=== PATIENT | female | born 1930 | race Caucasian/White ===

== ENCOUNTER → 2016-06-24 | Outpatient (CLI) | payer MEDICARE ==
[2016-06-24 12:02] LABS: ABSOLUTE EOSINOPHILS # (AUTO) 0.2 10^3/uL (0.0-0.6); ABSOLUTE LYMPHOCYTES (AUTO) 0.6 10^3/uL (0.5-4.7); ABSOLUTE MONOCYTES (AUTO) 0.3 10^3/uL (0.1-1.4); ABSOLUTE NEUT (AUTO) 2.7 10^3/uL (1.7-8.2); BASOPHILS % (AUTO) 0.8 % (0-2); EOSINOPHILS % (AUTO) 5.4 % (0-6); HEMATOCRIT 38.8 % (36.0-47.0); HEMOGLOBIN 12.8 g/dL (12.0-15.5); HGB HCT DIFFERENCE -0.4; MEAN CORPUSCULAR HEMOGLOBIN 28.5 pg (27.0-33.4); MEAN CORPUSCULAR VOLUME 86 fl (80-97); MONOCYTES % (AUTO) 7.4 % (3-13); RED BLOOD COUNT 4.49 10^6/uL (3.72-5.28); RED CELL DISTRIBUTION WIDTH 14.7 % (11.5-14.0); SEGMENTED NEUTROPHILS % (AUTO) 70.4 % (42-78); WHITE BLOOD COUNT 3.9 10^3/uL (4.0-10.5)
[2016-06-24 12:05] LABS: PROTHROMBIN TIME 13.1 SEC (11.4-15.4)
[2016-06-24 12:06] LABS: PARTIAL THROMBOPLASTIN TIME 28.6 SEC (23.5-35.8)
[2016-06-24 12:19] LABS: APPEARANCE,URINE CLOUDY; BILIRUBIN,URINE NEGATIVE (NEGATIVE); GLUCOSE, URINE NEGATIVE (NEGATIVE); KETONES,URINE NEGATIVE (NEGATIVE); LEUKOCYTE ESTERASE,URINE MODERATE (NEGATIVE); NITRITE,URINE NEGATIVE (NEGATIVE); PROTEIN,URINE NEGATIVE (NEGATIVE); UROBILINOGEN,URINE NEGATIVE mg/dL (<2.0)
[2016-06-24 12:26] LABS: ANION GAP 11 (5-19); BLOOD UREA NITROGEN 21 mg/dL (7-20); C-REACTIVE PROTEIN 11.5 mg/L (<10.0); CALCIUM 9.9 mg/dL (8.4-10.2); CARBON DIOXIDE 29 mmol/L (22-30); CHLORIDE 103 mmol/L (98-107); CREATININE RESULT 0.88 mg/dL (0.52-1.25); GLUCOSE 99 mg/dL (75-110); POTASSIUM 4.4 mmol/L (3.6-5.0); SODIUM 143.3 mmol/L (137-145)
[2016-06-24 12:40] LABS: ERYTHROCYTE SEDIMENTATION RATE 37 mm/hr (0-30)
--- NOTE | 2016-06-24 22:10 | EKG REPORT ---
SEVERITY:- NORMAL ECG - SINUS RHYTHM : Confirmed by: Natalia Call MD 24-Jun-2016 22:10:22
== END ==
LOC: OD 10:33
PROVIDERS: ATTEND Orthopaedic Surgery
DX: Z01.810 Encounter for preprocedural cardiovascular examination (principal); Z01.812 Encounter for preprocedural laboratory examination; Z01.818 Encounter for other preprocedural examination; Z01.89 Encounter for other specified special examinations
CPT/HCPCS: 36415; 71020; 80048; 81001; 85025; 85610; 85652; 85730; 86140; 93005; 93010

== ENCOUNTER 2016-07-28 06:42 | Inpatient (IN) | payer MEDICARE ==
[2016-07-17 13:08] LABS: PROTHROMBIN TIME 12.6 SEC (11.4-15.4)
[2016-07-17 13:09] LABS: HEMATOCRIT 40.8 % (36.0-47.0); HEMOGLOBIN 13.1 g/dL (12.0-15.5); HGB HCT DIFFERENCE -1.5; MEAN CORPUSCULAR HEMOGLOBIN 28.5 pg (27.0-33.4); MEAN CORPUSCULAR HGB CONC 32.1 g/dL (32.0-36.0); MEAN CORPUSCULAR VOLUME 89 fl (80-97); RED BLOOD COUNT 4.59 10^6/uL (3.72-5.28); WHITE BLOOD COUNT 5.3 10^3/uL (4.0-10.5)
[2016-07-17 13:27] LABS: ANION GAP 11 (5-19); BLOOD UREA NITROGEN 26 mg/dL (7-20); C-REACTIVE PROTEIN 7.3 mg/L (<10.0); CALCIUM 10.1 mg/dL (8.4-10.2); CARBON DIOXIDE 27 mmol/L (22-30); CHLORIDE 104 mmol/L (98-107); CREATININE RESULT 0.86 mg/dL (0.52-1.25); GLUCOSE 96 mg/dL (75-110); POTASSIUM 4.3 mmol/L (3.6-5.0); SODIUM 142.4 mmol/L (137-145)
[2016-07-17 13:59] LABS: ERYTHROCYTE SEDIMENTATION RATE 26 mm/hr (0-30)
[2016-07-22 18:20] LABS: APPEARANCE,URINE SLIGHTLY-CLOUDY; BILIRUBIN,URINE NEGATIVE (NEGATIVE); GLUCOSE, URINE NEGATIVE (NEGATIVE); KETONES,URINE NEGATIVE (NEGATIVE); LEUKOCYTE ESTERASE,URINE MODERATE (NEGATIVE); NITRITE,URINE NEGATIVE (NEGATIVE); PROTEIN,URINE NEGATIVE (NEGATIVE); URINE SPECIFIC GRAVITY 1.018; UROBILINOGEN,URINE NEGATIVE mg/dL (<2.0)
[~2016-07-28 06:42] MED LIST: BUPIVACAINE INJ/PF LIPOSOME/PF 266 MG/20 ML SDV INJ PRN; CEFAZOLIN INJ 1 GM VIAL IV PRN; IBUPROFEN 800 MG/NS 250 ML IV PRN; LACTATED RINGERS 1000 ML IV PRN; LANSOPRAZOLE 15 MG TAB.RAP.DR PO PRN; LIDOCAINE 0.5% INJ-PF (5 MG/ML) 50 ML SDV SUBCUT PRN; OXYCODONE HCL SR 10 MG TABLET PO PRN; SCOPOLAMINE HYDROBROMIDE 1.5 MG PATCH.TD72 TOP PRN; VANCOMYCIN HCL 1,000 MG in DEXTROSE 5%-WATER 250 ML IV PRN
[2016-07-28] MEDS ORDERED: MIDAZOLAM 2 MG/2 ML INJ ONE (06:58)
[2016-07-28] MEDS ORDERED: FENTANYL CITRATE INJ/PF 100 MCG/2 ML AMPUL ONE (06:58)
[2016-07-28] MEDS ORDERED: PROPOFOL INJ 200 MG/20 ML VIAL IV ONE (06:59)
[2016-07-28] MEDS ORDERED: TRANEXAMIC ACID INJ/PF 1,000 MG/10 ML SDV IV ONE ×3 (06:59→12:00)
[2016-07-28] MEDS ORDERED: EPHEDRINE SULFATE INJ 50 MG/1 ML AMPULE ONE (06:59)
[2016-07-28] MEDS ORDERED: BUPIVACAINE INJ/PF LIPOSOME/PF 266 MG/20 ML SDV ONE (07:34)
[2016-07-28] MEDS ORDERED: THROMBIN (BOVINE) 5000 UNIT EPITAXIS KIT ONE (07:34)
[2016-07-28] MEDS ORDERED: THROMBIN (BOVINE) TOPICAL 20000 UNIT VIAL ONE (07:34)
[2016-07-28] MEDS ORDERED: ALBUTEROL SULFATE 0.083% NEB 2.5 MG/3 ML AMPUL NEB ONE (07:35)
[2016-07-28] MEDS ORDERED: DEXMEDETOMIDINE INJ 80 MCG/20 ML VIAL IV ONE (07:59)
[2016-07-28] MEDS ORDERED: VANCOMYCIN HCL INJ 1000 MG VIAL ONE (09:05)
[2016-07-28] MEDS ORDERED: MEPERIDINE HCL/PF INJ 25 MG/1 ML DISP.SYRIN IV PRN (09:36)
[2016-07-28] MEDS ORDERED: ONDANSETRON HCL INJ/PF 4 MG/2 ML SDV IV PRN ×2 (09:36→10:11)
[2016-07-28] MEDS ORDERED: DIPHENHYDRAMINE HCL 50 MG/ML VIAL IV PRN ×2 (09:36→10:11)
[2016-07-28] MEDS ORDERED: PROMETHAZINE HCL INJ 25 MG/1 ML VIAL IV PRN ×2 (09:36)
[2016-07-28] MEDS ORDERED: FENTANYL CITRATE INJ/PF 100 MCG/2 ML AMPUL IV PRN ×3 (09:36)
[2016-07-28] MEDS ORDERED: MORPHINE SULFATE 10 MG/ML INJ IM PRN (10:11)
[2016-07-28] MEDS ORDERED: ZOLPIDEM TARTRATE 5 MG TABLET PO PRN (10:11)
[2016-07-28] MEDS ORDERED: MORPHINE SULFATE 10 MG/ML INJ IV PRN ×3 (10:11)
[2016-07-28] MEDS ORDERED: MAG HYDROX/AL HYDROX/SIMETH SUSP 30 ML UDCUP PO PRN (10:11)
[2016-07-28] MEDS ORDERED: ONDANSETRON 4 MG TAB.RAPDIS PO PRN (10:11)
[2016-07-28] MEDS ORDERED: RINGERS SOLUTION,LACTATED 1,000 ML IV PRN (10:11)
[2016-07-28] MEDS ORDERED: ACETAMINOPHEN 325 MG TABLET PO PRN (10:11)
[2016-07-28] MEDS ORDERED: OXYCODONE HCL IR 5 MG TABLET PO PRN (10:11)
--- NOTE | 2016-07-28 10:11 | Operative Report ---
Operative Report DATE OF SURGERY: 07/28/16 PREOPERATIVE DIAGNOSIS: Posttraumatic arthrosis left knee OPERATION: Left knee arthroplasty SURGEON: SACHA FOSTER ANESTHESIA: Spinal TISSUE REMOVED OR ALTERED: Cultures to microbiology ESTIMATED BLOOD LOSS: 100 PROCEDURE: Implants used: Femur: Triathlon #3 PS femur Tibia: 2 tibia Tibial liner: 9 mm PS insert Patella: 32 mm oval patella Procedure with the patient supine on the operating table the left the limb is prepped and draped in a sterile fashion. The limb was elevated for exsanguination and the tourniquet inflated to 280 torr. Patient has had both a previous lateral as well as posterior medial incision. I do not think that I could approach the necessary anatomy reusing either of these decisions. Therefore make a decision to move forward with a median parapatellar incision which is equally distant from the previous 2 incisions.. Access is gained to the femoral canal through the intercondylar notch. Intramedullary alignment instrumentation used to resect 10 mm of distal femur in 5 of valgus. Sizing guide indicated a size 3 femur. Appropriate cutting jig is then used to fashion anterior posterior and chamfer cuts. A trial reduction femurs performed and this is judged to be adequate. Attention was next turned to the tibia. Using an extra medullary alignment system two millimeters was resected off the medial tibial plateau. This is sized to a size 2 tibia. Plan was to remove any hardware from the previous reconstruction that impacted upon the ability to seat the necessary implants. As it turns out I was able to seat tibial implant without removing any hardware. A trial reduction was now performed with a 3 femur and a to tibia using a 9 millimeters spacer. It is full extension and central patellofemoral tracking. The articular surface the patella was next resected using an oscillating saw. All trial implants were removed. Polymethylmethacrylate is mixed and used to cement the above implants in place. On adequate curing the cement excess cement was removed the tourniquet was deflated hemostasis obtained the wound is then closed in layers using interrupted Vicryl followed by teresa. A sterile compressive dressing was applied and the patient returned to recovery room in satisfactory condition.
--- NOTE | 2016-07-28 11:09 | RADIOLOGY REPORT (SQ) ---
EXAM DESCRIPTION: KNEE LEFT 2 VIEWS COMPLETED DATE/TIME: 07/28/2016 10:59 am REASON FOR STUDY: Post OP -Long Cassette in PACU S82.122S DISPLACED FRACTURE OF LATERAL CONDYLE OF LEFT TIBIA COMPARISON: None. NUMBER OF VIEWS: Two view(s). TECHNIQUE: Digital radiographic images of the left knee post-procedure. LIMITATIONS: None. FINDINGS: BONES: No worrisome or unexpected findings post-procedure. DEVICE: There is a total knee prosthesis in place along with internal fixation of the proximal tibia. SOFT TISSUES: No worrisome findings. Expected postoperative soft tissue changes. IMPRESSION: SATISFACTORY POSTOPERATIVE LEFT KNEE. TECHNICAL DOCUMENTATION: JOB ID: [id number] [employer]- All Rights Reserved
[2016-07-28] MEDS ORDERED: LIDOCAINE 2% INJ-PF (20 MG/ML) 10 ML AMPUL ONE (12:25)
[2016-07-28] MEDS: SENNOSIDES/DOCUSATE 8.6-50 MG 1 EACH TABLET PO SCH (17:11)
[2016-07-28] MEDS: PAROXETINE HCL 20 MG TABLET PO SCH (17:11)
[2016-07-28] MEDS: IBUPROFEN 800 MG in NORMAL SALINE 250 ML IV SCH (17:12)
[2016-07-28] MEDS ORDERED: (PENDING PHARMACY ID) (Paroxetine Hcl [Paxil] 10 MG) PO SCH (18:00)
[2016-07-28] MEDS ORDERED: RIVAROXABAN 10 MG TABLET PO SCH (22:00)
[2016-07-28] MEDS ORDERED: VANCOMYCIN HCL 1,000 MG in DEXTROSE 5%-WATER 250 ML IV ONE (22:00)
[2016-07-29] MEDS: IBUPROFEN 800 MG in NORMAL SALINE 250 ML IV SCH ×2 (01:56→09:53)
[2016-07-29] MEDS ORDERED: LANSOPRAZOLE 30 MG TAB.RAP.DR PO SCH (06:00)
--- NOTE | 2016-07-29 07:18 | PDOC DISCHARGE SUMMARY ---
General - Admit/Disc Date/PCP Admission Date/Primary Care Provider: 07/28/16 06:42 PAIGE SHIRLEY MD Discharge Date: 07/29/16 - Discharge Diagnosis (1) Arthritis of left knee Is this a current diagnosis for this admission?: Yes - Additional Information Resuscitation Status: Full Code Discharge Diet: As Tolerated, Regular Discharge Activity: Activity As Tolerated, Balance Activity w/Rest, No Driving, No tub bath Home Medications: Atorvastatin Calcium 10 mg PO QAM 07/16/16 Levothyroxine Sodium 88 mcg PO QAM 07/16/16 Magnesium Oxide,Aspartate,Citr [Triple Magnesium Complex] 400 mg PO DAILY Pantoprazole Sodium [Protonix] 40 mg PO QAM 07/16/16 Paroxetine HCl [Paxil] 10 mg PO BID 07/16/16 Oxycodone HCl [Oxy-Ir 5 mg Tablet] 5 mg PO Q6HP PRN #0 tablet 07/29/16 Rivaroxaban [Xarelto 10 mg Tablet] 10 mg PO QHS #0 tablet 07/29/16 History of Present Illness History of Present Illness: ROVERTO FRANCOIS is a 85 year old female status post a left tibial plateau fracture treated with an open reduction internal fixation in the distant past. She developed angular deformity and severe posttraumatic arthrosis. She is now admitted for an elective knee arthroplasty. Hospital Course Hospital Course: Patient is admitted through the operating room where she undergoes a relatively complicated left knee arthroplasty because of pre-existing hardware. She tolerates this without complication. She is returned to full in satisfactory condition. She has minimal pain issues. She makes excellent progress with physical therapy. She is subsequently for discharge home. Physical Exam Vital Signs: Temp Pulse Resp BP Pulse Ox 36.8 C 83 14 103/68 95 07/28/16 23:33 07/28/16 23:33 07/28/16 23:33 07/28/16 23:33 07/28/16 23:33 Intake & Output 07/28/16 07/29/16 07/30/16 06:59 06:59 06:59 Intake Total 3205 Output Total 450 Balance 2755 General appearance: PRESENT: no acute distress Head exam: PRESENT: normocephalic Eye exam: PRESENT: EOMI Respiratory exam: PRESENT: unlabored Cardiovascular exam: PRESENT: RRR Pulses: PRESENT: +1 pedal pulses bilateral GI/Abdominal exam: PRESENT: soft Rectal exam: PRESENT: deferred Extremities exam: PRESENT: other - Left lower extremity picot dressing is changed. Wound is clean dry and intact. Neurological exam: PRESENT: alert, awake, oriented to person, oriented to place , oriented to time, oriented to situation. ABSENT: motor sensory deficit Psychiatric exam: PRESENT: appropriate affect, normal mood. ABSENT: homicidal ideation, suicidal ideation Skin exam: PRESENT: dry, intact, warm. ABSENT: cyanosis, rash Results Laboratory Results: 07/17/16 11:43 07/17/16 11:43 07/28/16 07:52 Blood Type B POSITIVE Antibody Screen NEGATIVE Impressions: Knee X-Ray 07/28/16 10:12 IMPRESSION: SATISFACTORY POSTOPERATIVE LEFT KNEE. Status: Imported from PACS Plan Discharge Plan: Patient to be discharged home with home health nursing, home health physical therapy, wheeled walker, bedside commode. Visiting nurse service to change the left knee picot dressing on postop day 7. Follow-up can be with Dr. Vega in the [facility] for surgery in 2 weeks for staple removal. Time Spent: Less than 30 Minutes
[2016-07-29 07:47] LABS: HEMATOCRIT 33.7 % (36.0-47.0); HEMOGLOBIN 10.9 g/dL (12.0-15.5); MEAN CORPUSCULAR HEMOGLOBIN 29.1 pg (27.0-33.4); MEAN CORPUSCULAR HGB CONC 32.3 g/dL (32.0-36.0); MEAN CORPUSCULAR VOLUME 90 fl (80-97); RED BLOOD COUNT 3.74 10^6/uL (3.72-5.28); WHITE BLOOD COUNT 6.6 10^3/uL (4.0-10.5)
[2016-07-29] MEDS ORDERED: LEVOTHYROXINE SODIUM 0.088 MG TABLET PO SCH (08:00)
[2016-07-29 08:06] LABS: ANION GAP 11 (5-19); BLOOD UREA NITROGEN 18 mg/dL (7-20); CARBON DIOXIDE 23 mmol/L (22-30); CHLORIDE 103 mmol/L (98-107); CREATININE RESULT 1.16 mg/dL (0.52-1.25); GLUCOSE 105 mg/dL (75-110); POTASSIUM 4.2 mmol/L (3.6-5.0); SODIUM 136.7 mmol/L (137-145)
[2016-07-29] MEDS: SENNOSIDES/DOCUSATE 8.6-50 MG 1 EACH TABLET PO SCH (09:52)
[2016-07-29] MEDS: PAROXETINE HCL 20 MG TABLET PO SCH (09:52)
[2016-07-29] MEDS ORDERED: PRENATAL VITAMIN W-O CA NO5/FE FUMARATE/FA CAPSULE PO SCH (10:00)
[2016-07-29] MEDS ORDERED: [UNRECOGNIZED DRUG - OTHER] PO SCH (10:00)
[2016-07-29] MEDS ORDERED: MAGNESIUM OXIDE 400 MG TABLET PO SCH (10:00)
[2016-07-29] MEDS ORDERED: MAGNESIUM OXIDE ASPARTATE CITR PO SCH (10:00)
[2016-07-29 11:44] VITALS: BP 128/72
[2016-07-29] MEDS ORDERED: ATORVASTATIN CALCIUM 10 MG TABLET PO SCH (22:00)
== END 2016-07-29 12:35 | disposition home health service (06) | DRG 470 ==
LOC: INOR 06:42 → 4S 12:20
PROVIDERS: ADMIT Orthopaedic Surgery; ATTEND Orthopaedic Surgery
PROC: 0SRD0J9 Replacement of Left Knee Joint with Synthetic Substitute, Cemented, Open Approach (ICD-10-PCS; principal; 2016-07-28 08:45)
DX: M17.32 Unilateral post-traumatic osteoarthritis, left knee (principal); S82.142S Displaced bicondylar fracture of left tibia, sequela; E03.9 Hypothyroidism, unspecified; I10 Essential (primary) hypertension; X58.XXXS Exposure to other specified factors, sequela; K21.9 Gastro-esophageal reflux disease without esophagitis; E78.5 Hyperlipidemia, unspecified; F41.9 Anxiety disorder, unspecified; M54.30 Sciatica, unspecified side; Z90.49 Acquired absence of other specified parts of digestive tract; Z90.710 Acquired absence of both cervix and uterus; Z87.891 Personal history of nicotine dependence
CPT/HCPCS: 01402; 36415; 80048; 81001; 85027; 85610; 85652; 85730; 86140; 86850; 86900; 86901; 87070; 87075; 87205; 88305; 88311; 94799; C9290; G8978-GP; G8979-GP; G8987-GO; G8988-GO; J0690; J1741; J2250; J2704; J3010; J3370; J3490; J7050; J7060; L1830

== ENCOUNTER → 2019-07-01 | Outpatient (CLI) | payer MEDICARE ==
--- NOTE | 2019-07-03 08:36 | RADIOLOGY REPORT (SQ) ---
EXAM DESCRIPTION: CT LT LOWER EXTREMITY WITHOUT IMAGES COMPLETED DATE/TIME: 07/01/2019 2:19 pm REASON FOR STUDY: (M25.562)PAIN IN LEFT KNEE M25.562 PAIN IN LEFT KNEE COMPARISON: Radiographs from 2017. TECHNIQUE: Axial imaging performed through the left knee with reformatted coronal and sagittal imagi ng windowed for bone and soft tissues. Images saved to PACS. 3D IMAGING: Were 3D images as MIP, SSD, or volume rendering performed at the work station? Yes. All CT scanners at this facility use dose modulation, iterative reconstruction, and/or weight based d osing when appropriate to reduce radiation dose to as low as reasonably achievable (ALARA). [facility]: Dose Right [facility]: CareDose [facility]: Dose Right [facility]: Teradose 4D [facility]: openPeople LIMITATIONS: Extensive beam hardening artifact related to knee arthroplasty and tibial fracture fixa tion hardware. RADIATION DOSE: CT Rad equipment meets quality standard of care and radiation dose reduction techniq ues were employed. CTDIvol: 6.6 mGy. DLP: 238 mGy-cm. mGy. FINDINGS: SOFT TISSUES: Joint effusion, incompletely assessed. No drainable collections otherwise. No gross mass on limited evaluation. BONES: Osteopenic. No suggestion of bone resorption or worrisome bone lesion. Minimal anteroposteri ryder directed lucency in the anterior tibia at the level of the tip of the tibial component stem. Pl ease see axial image 59/126. This extends through the anterior cortex but has associated sclerosis a nd probably is chronic. MINERALIZATION: Normal. OTHER: No other significant finding. IMPRESSION: 1. Extensive limiting postoperative artifact as above. 2. Joint effusion. 3. Doubt acute fracture. Minimal proximal tibial findings as above. Associated bone sclerosis sugge sts relative chronicity. Not otherwise evaluated. TECHNICAL DOCUMENTATION: JOB ID: [id number] Quality ID # [id number]: Final reports with documentation of one or more dose reduction techniques (e.g., Au tomated exposure control, adjustment of the mA and/or kV according to patient size, use of iterative reconstruction technique) 2010 [employer]- All Rights Reserved Reading location - IP/workstation name: [email or web address]
== END ==
LOC: RAD 13:13
PROVIDERS: ATTEND Orthopaedic Surgery
DX: M25.462 Effusion, left knee (principal); M25.562 Pain in left knee